=== PATIENT | male | born 1980 | race Caucasian/White ===

== ENCOUNTER 2017-07-07 16:13 | Emergency (ER) | payer BC ==
[~2017-07-07] VITALS: Ht 193 cm; Wt 108.0 kg
[2017-07-07 16:25] VITALS: BP 136/83
[2017-07-07] MEDS ORDERED: TETANUS-DIPTH-ACEL PERTUSSIS 0.5ML SYRG IM ONE (17:00)
== END 2017-07-07 17:31 | disposition home or self-care (01) ==
LOC: ER 16:23
DX: S61.212A Laceration without foreign body of right middle finger without damage to nail, initial encounter (principal); F17.210 Nicotine dependence, cigarettes, uncomplicated; W26.0XXA Contact with knife, initial encounter; Y93.89 Activity, other specified; Y99.8 Other external cause status; Y92.89 Other specified places as the place of occurrence of the external cause; Z23 Encounter for immunization
CPT/HCPCS: 12002; 90471; 90715

== ENCOUNTER 2025-10-25 05:31 | Inpatient (IN) | payer BC ==
[~2025-10-25] VITALS: Ht 193 cm; Wt 118.6 kg
[2025-10-25] VITALS (7 sets, daily range): BP systolic 127–157; BP diastolic 81–99; PULSE 67–115; RESP 11–18; TEMP 98–98.3; O2SAT 94–97
--- NOTE | 2025-10-25 06:40 | ED.PDOC ---
GI ASSESSMENT HPI Comments 45 y.o male with PMHx of HTN, presents to the ED for a chief complaint of RLQ abdominal pain associated with nausea and vomiting that started yesterday afternoon. Patient describes pain as sharp, constant, and has no alleviating factors. He denies any hematemesis, diarrhea, fever, chills, chest pain, or SOB. Chief Complaint: Abdominal Pain Time Seen by MD: 06:32 Reviewed Notes: Nurses Notes, Medications, Allergies Allergies: Coded Allergies: NO KNOWN ALLERGIES (Unverified , 07/07/17) Information Source: Patient Mode of Arrival: Ambulatory Timing: Days Duration: Since onset Vomitus: Firm Stool: Normal Severity: Moderate Recent: None Recent Hx of: None Pain Location: Diffuse Modifying Factors: Nothing Associated sign and symptoms: Nausea, Vomiting, Abdominal Pain Past Medical History PAST MEDICAL HISTORY: Denies Surgical History: Denies all surgeries Family History Family History: Unknown Social History Smoker: Cigarettes Lives In: Home Constitutional: denies: chills, diaphoresis, fatigue, fever, malaise, sweats, weakness, others EENTM: denies: blurred vision, double vision, ear bleeding, ear discharge, ear drainage, ear pain, ear ringing, eye pain, eye redness, hearing loss, mouth pain , mouth swelling, nasal discharge, nose bleeding, nose congestion, nose pain, photophobia, tearing, throat pain, throat swelling, voice changes, others Cardiovascular: denies: chest pain, dizzy spells, diaphoresis, Dyspnea on exertion, edema, irregular heart beat, left arm pain, lightheadedness, palpitations, PND, syncope, others Gastrointestinal: reports: abdominal pain, nausea, vomiting; denies: abdomen distended, blood streaked bowels, constipated, diarrhea, dysphagia, difficulty swallowing, hematemesis, melena, poor appetite, poor fluid intake, rectal bleeding, rectal pain, others Genitourinary: denies: burning, dysuria, flank pain, frequency, hematuria, incontinence, penile discharge, penile sore, pain, testicle pain, testicle swelling, urgency, others Neurological: denies: dizziness, fainting, headache, left sided numbness, left sided weakness, numbness, paresthesia, pre-existing deficit, right sided numbness, right sided weakness, seizure, speech problems, tingling, tremors, weakness, others Musculoskeletal: denies: back pain, gout, joint pain, joint swelling, muscle pain, muscle stiffness, neck pain, others Integumetry: denies: bruises, change in color, change in hair/nails, dryness, laceration, lesions, lumps, rash, wounds, others Allergic/Immunocompromised: denies: Difficulty Healing, Frequent Infections, Hives, Itching, others Hematologic/Lymphatic: denies: anemia, blood clots, easy bleeding, easy bruising, swollen glands, others Endocrine: denies: excessive hunger, excessive sweating, excessive thirst, excessive urination, flushing, intolerance to cold, intolerance to heat, unexplained weight gain, unexplained weight loss, others Psychiatric: denies: anxiety, bipolar disorder, depression, hopeless, panic disorder, schizophrenia, sleepless, suicidal, others All Other Systems: Reviewed and Negative Physical Exam General Appearance: Moderate Distress HEENT: Normal ENT Inspection, Pharynx Normal, TMs Normal Neck: Full Range of Motion, Non-Tender, Normal, Normal Inspection Respiratory: Chest Non-Tender, Lungs Clear, No Accessory Muscle Use, No Respiratory Distress, Normal Breath Sounds Cardiovascular: No Edema, No JVD, No Murmur, No Gallop, Normal Peripheral Pulses, Regular Rate/Rhythm Breast Exam: Deferred Gastrointestinal: Diffuse, Soft Genitalia: Deferred Pelvic: Deferred Rectal: Deferred Extremities: No calf tenderness, Normal capillary refill, Normal inspection, Normal range of motion, Non-tender, No pedal edema Musculoskeletal : Apperance: Normal Neurologic: Alert, repeater chief II-XII nml as Tested, No Motor Deficits, Normal Affect, Normal Mood, No Sensory Deficits Cerebellar Function: Normal Reflexes: Normal Skin: Dry, Normal Color, Warm Peripheral Pulses: 3+ Radial (R), 3+ Radial (L) Lymphatic: No Adenopathy Was a procedure done? Was a procedure done?: No GI differential Dx Differential Diagnosis: Constipation, Diverticular disease, Esophagitis, Gastritis/PUD, Gastroenteritis, Dehydration, Electrolyte Imbalance, Food Poisoning, Viral X-Ray, Labs, Meds, VS Vital Signs Date Time Temp Pulse Resp B/P (MAP) Pulse Ox O2 Delivery O2 Flow Rate FiO2 10/25/25 07:55 97 17 134/85 10/25/25 07:49 98.6 97 17 134/85 (101) 97 98.6 10/25/25 06:57 98.6 100 20 135/101 (112) 98 98.6 10/25/25 05:32 98.5 118 18 125/64 98 98.5 Lab Test 10/25/25 06:48 Range/Units White Blood Count 21.9 H 4.4-10.8 10^3/uL Red Blood Count 5.70 4.5-5.90 10^6/uL Hemoglobin 17.6 H 13.5-17.5 g/dL Hematocrit 51.1 41.0-53.0 % Mean Corpuscular Volume 89.7 80.0-100.0 fL Mean Corpuscular Hemoglobin 30.9 28.0-32.0 pg Mean Corpuscular Hemoglobin Concent 34.4 32.0-36.0 g/dL Red Cell Distribution Width 13.7 11.8-14.3 % Platelet Count 326 140-450 10^3/uL Mean Platelet Volume 8.4 6.9-10.8 fL Neutrophils (%) (Auto) 91.1 H 37.0-80.0 % Lymphocytes (%) (Auto) 4.2 L 10.0-50.0 % Monocytes (%) (Auto) 4.5 0.0-12.0 % Eosinophils (%) (Auto) 0.1 0.0-7.0 % Basophils (%) (Auto) 0.1 0.0-2.0 % Neutrophils # (Auto) 19.9 H 1.6-8.6 10 ^3/uL Lymphocytes # (Auto) 0.9 0.4-5.4 10 ^3/uL Monocytes # (Auto) 1.0 0-1.3 10 ^3/uL Eosinophils # (Auto) 0 0-0.8 10 ^3/uL Basophils # (Auto) 0 0-0.2 10 ^3/uL Nucleated Red Blood Cells 0.0 % Sodium Level 136 136-145 mmol/L Potassium Level 4.5 3.5-5.1 mmol/L Chloride Level 101 98-107 mmol/L Carbon Dioxide Level 25 20-31 mmol/L Anion Gap 10 5-15 Blood Urea Nitrogen 15 9-23 mg/dL Creatinine 1.34 H 0.700-1.30 mg/dL Glomerular Filtration Rate Calc 67 >90 mL/min BUN/Creatinine Ratio 11.2 10.0-20.0 Serum Glucose 103 74-106 mg/dL Calcium Level 9.8 8.7-10.4 mg/dL Current Medications Medications (Trade) Dose Ordered Sig/Aretha Route Start Time Stop Time Status Last Admin Morphine Sulfate 4 mg ONCE ONCE IV 10/25/25 06:45 10/25/25 06:46 DC 10/25/25 07:55 Ondansetron HCl (Zofran) 4 mg ONCE ONCE IV 10/25/25 06:45 10/25/25 06:46 DC 10/25/25 07:55 Sodium Chloride 1,000 ml @ 1,000 mls/hr Q1H ONCE IV 10/25/25 06:45 10/25/25 07:44 DC 10/25/25 07:56 Patient alert. Complaining of abdominal pain. Vitals stable. Answering questions. Abdomen is diffusely tender. Establish intravenous access. Was given fluids. Was given morphine. Was given Zofran. CT scan of the abdomen reviewed does show a appendicitis. Was given Ancef. Was given Flagyl. Surgical consultation. Explained to the patient. Continue monitoring. Time of 1ST Reevaluation: 06:40 Reevaluation 1ST: Unchanged Patient Education/Counseling: Diagnosis, Treatment, Prognosis Family Education/Counseling: No Family Present SEPSIS Sepsis Screen Date sepsis recognized/suspect: Oct 25, 2025 Time Sepsis recognized/suspect: 533 Recent Procedure: No On Antibiotic Therapy: No Respiratory Rate >20: No Heart Rate >90: Yes Temp<36 C (96.8 F) or >38.3 C: No SBP <90 or MAP <65 mmHG: No New Acute Mental Status Change: No Is the patient on CPAP, BIPAP,: No Physician Orders Urinalysis (10/25/25 06:37) Ct Ab Pel Wo Con-No Oral Or Iv (10/25/25 06:37) Vital Signs Date Time Temp Pulse Resp B/P (MAP) Pulse Ox O2 Delivery O2 Flow Rate FiO2 10/25/25 07:55 97 17 134/85 10/25/25 07:49 98.6 97 17 134/85 (101) 97 98.6 10/25/25 06:57 98.6 100 20 135/101 (112) 98 98.6 10/25/25 05:32 98.5 118 18 125/64 98 98.5 Laboratory Tests Test 10/25/25 06:48 White Blood Count 21.9 10^3/uL (4.4-10.8) H Medications Medications Dose Ordered Sig/Aretha Route Start Time Stop Time Status Last Admin Dose Admin Morphine Sulfate 4 mg ONCE ONCE IV 10/25/25 06:45 10/25/25 06:46 DC 10/25/25 07:55 Ondansetron HCl 4 mg ONCE ONCE IV 10/25/25 06:45 10/25/25 06:46 DC 10/25/25 07:55 Sodium Chloride 1,000 ml @ 1,000 mls/hr Q1H ONCE IV 10/25/25 06:45 10/25/25 07:44 DC 10/25/25 07:56 Departure 1 Departure Time of Disposition: 07:10 Impression: Primary Impression: Acute appendicitis Qualified Codes: K35.80 - Unspecified acute appendicitis Disposition: ADMITTED INPATIENT Admit to: Med Surg Condition: Guarded Critical Care Note Critical Care Time?: Yes (90 min-critical care time only) Stability Stability form required: No I personally scribed for AMANDA LAY MD ([email or web address]) on 10/25/25 at 06:40. Electronically submitted by Lisset Villanueva ([facility]). I personally scribed for AMANDA LAY MD ([email or web address]) on 10/25/25 at 06:40. Electronically submitted by Lisset Villanueva ([facility]). I personally scribed for AMANDA LAY MD ([email or web address]) on 10/25/25 at 08:22. Electronically submitted by Lisset Villanueva ([facility]). AMANDA LAY MD Oct 25, 2025 06:40
[2025-10-25 07:29] LABS: Chloride 101 mmol/L (98-107); Hematocrit 51.1 % (41.0-53.0); Hemoglobin 17.6 g/dL (13.5-17.5); Mean Corpuscular Hemoglobin 30.9 pg (28.0-32.0); Mean Corpuscular Volume 89.7 fL (80.0-100.0); Nucleated Red Blood Cells % 0.0 %; Potassium 4.5 mmol/L (3.5-5.1); Sodium 136 mmol/L (136-145)
[2025-10-25 07:30] LABS: Anion Gap 10 (5-15); Calcium 9.8 mg/dL (8.7-10.4); Carbon Dioxide 25 mmol/L (20-31)
[2025-10-25 07:35] LABS: BUN/Creatinine Ratio 11.2 (10.0-20.0); Blood Urea Nitrogen 15 mg/dL (9-23); Glucose 103 mg/dL (74-106)
[2025-10-25] MEDS: ONDANSETRON HCL 4 MG/2 ML VIAL IV ONE (07:55)
[2025-10-25] MEDS: MORPHINE SULFATE 4 MG/ML SYR/VIAL IV ONE (07:55)
[2025-10-25] MEDS: SODIUM CHLORIDE 0.9% 1,000 ML IV ONE ×2 (07:56→09:17)
--- NOTE | 2025-10-25 08:09 | DVH ---
Exam: CT CT AB PEL WO CON-NO ORAL OR IV History: colitis Comparison Study: None. Technique: Multidetector spiral CT of the abdomen and pelvis was performed from lung bases to pubic symphysis. Imaging was performed without intravenous contrast. Coronal and sagittal multiplanar reformats were obtained from the axial data set by the technologist. Radiation Dose : 1. Abdomen/Pelvis: CTDIvol 17.2 mGy, DLP 1018.3 mGy*cm. Findings: Evaluation of vasculature and solid organs is limited due to lack of intravenous contrast use. Lung Bases: Lung bases are clear. Visualized portions of the heart and pericardium are unremarkable. Liver: The liver is normal in size. No focal lesions. Gallbladder and Biliary Tree: The gallbladder is unremarkable. No intrahepatic or extrahepatic biliary ductal dilatation. Spleen: Unremarkable Pancreas: The pancreas is grossly unremarkable. Adrenal Glands: Unremarkable Kidneys: Kidneys are unremarkable without calculi or hydronephrosis. GI tract: The stomach is grossly normal in appearance. No evidence of small bowel wall thickening or abnormal dilatation to suggest bowel obstruction. The colon is unremarkable. The appendix is dilated with periappendiceal fat stranding. The appendix measures up to 1.4 cm. There is a 5 mm appendicolith in the appendix. Peritoneum/mesentery/retroperitoneum. No evidence of free intraperitoneal air. No ascites. No evidence of suspicious lymphadenopathy. Abdominal Wall: Postsurgical changes in the ventral abdominal wall. Vasculature: The visualized abdominal aorta is normal in size and caliber. Evaluation of abdominal and pelvic vessels is limited due to lack of intravenous contrast. Urinary Bladder: Grossly unremarkable for degree of distention. Pelvic Organs: Unremarkable Musculoskeletal: No aggressive focal bony lesions, acute fractures or dislocation. Multilevel lumbar spondylosis. T11, T12 and L1 age-indeterminate compression deformity. IMPRESSION: 1. Acute appendicitis. No perforation or fluid collection. 2. Age-indeterminate T11, T12 and L1 compression deformities. 3. Postsurgical changes in the ventral abdominal wall.
[2025-10-25] MEDS: ceFAZolin 1GM/50ML 50 ML IV ONE (08:30)
[2025-10-25] MEDS ORDERED: ACETAMINOPHEN 325 MG TAB PO PRN (09:00)
[2025-10-25] MEDS ORDERED: ONDANSETRON HCL 4 MG/2 ML VIAL IV PRN ×2 (09:00→16:45)
[2025-10-25] MEDS ORDERED: DOCUSATE SOD 100 MG CAP PO PRN (09:00)
[2025-10-25] MEDS ORDERED: PANT40T PO (09:05)
[2025-10-25] MEDS ORDERED: MET50T PO (09:05)
[2025-10-25] MEDS ORDERED: VALS1TAB58 PO (09:05)
--- NOTE | 2025-10-25 09:18 | DVHHP2 ---
History of Present Illness Reason for Visit: Abdominal Pain History of Present Illness Marcellus Kam is a 45-year-old male with past medical history of GERD and hypertension, who came to the hospital for abdominal pain. Patient states the pain began yesterday about [id number] in his RLQ that he describes as sharp with associated nausea and vomiting. He states he was also having severe acid reflux and he has not been able to eat or drink much the last 24 hours. He tried multiple home remedies, but his pain continued to worsen prompting him to come to the hospital. Cardiovascular: HTN GI: GERD Past Surgical History: Hernia Repair (x 4) Smoke: No ALCOHOL: rare Drugs: None Lives: with Family Domestic Violence: Neg Review of Systems Constitutional: No: Fever, Chills, Sweats, Weakness, Malaise, Other Eyes: No: Pain, Vision change, Conjunctivae inflammation, Eyelid inflammation, Other, Redness ENT: No: Ear pain, Ear discharge, Nose pain, Nose discharge, Nose congestion, Mouth pain, Mouth swelling, Throat pain, Throat swelling, Other Respiratory: No: Cough, Dry, Shortness of breath, SOB with excertion, Wheezing, Hemoptysis, Pleuritic Pain, Sputum, Wheezing, Other Cardiovascular: No: Chest Pain, Palpitations, Orthopnea, Paroxysmal Noc. Dyspnea, Edema, Lt Headedness, Other Gastrointestinal: Nausea, Vomiting, Abdominal Pain (RLQ tenderness that radiates down his groin); No: Diarrhea, Constipation, Melena, Hematochezia, Other Genitourinary: No Dysuria, No Frequency, No Incontinence, No Hematuria, No Retention, No Other Musculoskeletal: No: other, neck pain, shoulder pain, arm pain, back pain, hand pain, leg pain, foot pain Skin: No: Rash, Lesions, Jaundice, Bruising, Other Neurological: No: Weakness, Numbness, Incoordination, Change in speech, Confusion, Seizures, Other Allergies: Coded Allergies: NO KNOWN ALLERGIES (Unverified , 07/07/17) Exam Vital Signs Vital Signs Date Time Temp Pulse Resp B/P (MAP) Pulse Ox O2 Delivery O2 Flow Rate FiO2 10/25/25 07:55 97 17 134/85 10/25/25 07:49 98.6 97 98.6 General Appearance: Alert, Oriented X3, Cooperative, moderate distress HEENT: Atraumatic, PERRLA, Other (Mucous membr dry) Respiratory: Clear to auscultation Cardiovascular: Regular rate, Normal S1, Normal S2, No murmurs Abdominal: Normal bowel sounds, Other (RLQ tenderness) Extremities: No clubbing, No cyanosis, No edema, Normal pulses Skin: No rashes, No breakdown, No significant lesion Neuro: Normal gait, Normal speech, Strength at 5/5 X4 ext, Normal tone Psych/Mental Status: Mental status NL, Mood NL Labs/Xrays Labs Test 10/25/25 06:48 Range/Units White Blood Count 21.9 H 4.4-10.8 10^3/uL Red Blood Count 5.70 4.5-5.90 10^6/uL Hemoglobin 17.6 H 13.5-17.5 g/dL Hematocrit 51.1 41.0-53.0 % Mean Corpuscular Volume 89.7 80.0-100.0 fL Mean Corpuscular Hemoglobin 30.9 28.0-32.0 pg Mean Corpuscular Hemoglobin Concent 34.4 32.0-36.0 g/dL Red Cell Distribution Width 13.7 11.8-14.3 % Platelet Count 326 140-450 10^3/uL Mean Platelet Volume 8.4 6.9-10.8 fL Neutrophils (%) (Auto) 91.1 H 37.0-80.0 % Lymphocytes (%) (Auto) 4.2 L 10.0-50.0 % Monocytes (%) (Auto) 4.5 0.0-12.0 % Eosinophils (%) (Auto) 0.1 0.0-7.0 % Basophils (%) (Auto) 0.1 0.0-2.0 % Neutrophils # (Auto) 19.9 H 1.6-8.6 10 ^3/uL Lymphocytes # (Auto) 0.9 0.4-5.4 10 ^3/uL Monocytes # (Auto) 1.0 0-1.3 10 ^3/uL Eosinophils # (Auto) 0 0-0.8 10 ^3/uL Basophils # (Auto) 0 0-0.2 10 ^3/uL Nucleated Red Blood Cells 0.0 % Sodium Level 136 136-145 mmol/L Potassium Level 4.5 3.5-5.1 mmol/L Chloride Level 101 98-107 mmol/L Carbon Dioxide Level 25 20-31 mmol/L Anion Gap 10 5-15 Blood Urea Nitrogen 15 9-23 mg/dL Creatinine 1.34 H 0.700-1.30 mg/dL Glomerular Filtration Rate Calc 67 >90 mL/min BUN/Creatinine Ratio 11.2 10.0-20.0 Serum Glucose 103 74-106 mg/dL Calcium Level 9.8 8.7-10.4 mg/dL Exam: CT CT AB PEL WO CON-NO ORAL OR IV Findings: Evaluation of vasculature and solid organs is limited due to lack of intravenous contrast use. Lung Bases: Lung bases are clear. Visualized portions of the heart and pericardium are unremarkable. Liver: The liver is normal in size. No focal lesions. Gallbladder and Biliary Tree: The gallbladder is unremarkable. No intrahepatic or extrahepatic biliary ductal dilatation. Spleen: Unremarkable Pancreas: The pancreas is grossly unremarkable. Adrenal Glands: Unremarkable Kidneys: Kidneys are unremarkable without calculi or hydronephrosis. GI tract: The stomach is grossly normal in appearance. No evidence of small bowel wall thickening or abnormal dilatation to suggest bowel obstruction. The colon is unremarkable. The appendix is dilated with periappendiceal fat stranding. The appendix measures up to 1.4 cm. There is a 5 mm appendicolith in the appendix. Peritoneum/mesentery/retroperitoneum. No evidence of free intraperitoneal air. No ascites. No evidence of suspicious lymphadenopathy. Abdominal Wall: Postsurgical changes in the ventral abdominal wall. Vasculature: The visualized abdominal aorta is normal in size and caliber. Evaluation of abdominal and pelvic vessels is limited due to lack of intravenous contrast. Urinary Bladder: Grossly unremarkable for degree of distention. Pelvic Organs: Unremarkable Musculoskeletal: No aggressive focal bony lesions, acute fractures or dislocation. Multilevel lumbar spondylosis. T11, T12 and L1 age-indeterminate compression deformity. IMPRESSION: 1. Acute appendicitis. No perforation or fluid collection. 2. Age-indeterminate T11, T12 and L1 compression deformities. 3. Postsurgical changes in the ventral abdominal wall. SEPSIS Sepsis Screen Date sepsis recognized/suspect: Oct 25, 2025 Time Sepsis recognized/suspect: 0534 Recent Procedure: No On Antibiotic Therapy: No Respiratory Rate >20: No Heart Rate >90: Yes Temp<36 C (96.8 F) or >38.3 C: No SBP <90 or MAP <65 mmHG: No New Acute Mental Status Change: No Is the patient on CPAP, BIPAP,: No Physician Orders Urinalysis (10/25/25 06:37) Ct Ab Pel Wo Con-No Oral Or Iv (10/25/25 06:37) Cefazolin 1gm/50ml (Ancef) (10/25/25 08:30) Metronidazole 500mg/100ml (Flagyl 500mg/ (10/25/25 08:30) * Surgical Consult (10/25/25 ) Admit (10/25/25 08:53) Code Status (10/25/25 08:53) Hydrocodone-Acet 5/325mg Tab ([place] 5/32 (10/25/25 09:00) Ondansetron Hcl (Zofran) (10/25/25 09:00) Docusate Sodium Capsule (Colace Capsule) (10/25/25 09:00) Complete Blood Count (10/26/25 04:00) Comprehensive Metabolic Panel (10/26/25 04:00) Npo (Nothing By Mouth) Diet (10/25/25 Breakfast) Condition: Serious (10/25/25 08:53) Acetaminophen Tablet (Tylenol Tablet) (10/25/25 09:00) Morphine Sulfate Injection (10/25/25 09:00) Pantoprazole (Protonix) (10/25/25 10:00) Vital Signs Date Time Temp Pulse Resp B/P (MAP) Pulse Ox O2 Delivery O2 Flow Rate FiO2 10/25/25 07:55 97 17 134/85 10/25/25 07:49 98.6 97 17 134/85 (101) 97 98.6 10/25/25 06:57 98.6 100 20 135/101 (112) 98 98.6 10/25/25 05:32 98.5 118 18 125/64 98 98.5 Laboratory Tests Test 10/25/25 06:48 White Blood Count 21.9 10^3/uL (4.4-10.8) H Medications Medications Dose Ordered Sig/Aretha Route Start Time Stop Time Status Last Admin Dose Admin Morphine Sulfate 4 mg ONCE ONCE IV 10/25/25 06:45 10/25/25 06:46 DC 10/25/25 07:55 4 MG Ondansetron HCl 4 mg ONCE ONCE IV 10/25/25 06:45 10/25/25 06:46 DC 10/25/25 07:55 4 MG Sodium Chloride 1,000 ml @ 1,000 mls/hr Q1H ONCE IV 10/25/25 06:45 10/25/25 07:44 DC 10/25/25 07:56 1,000 MLS/HR Assessment/Plan Assessment/Plan Assessment: Acute appendicitis, Leukocytosis, Intractable abdominal pain, Hypertension, Plan: Admit to Med-Surg, Surgical consult, NPO, IV hydration, IV antibiotics, Pain management, Portable chest X-ray, PT/PTT, Home medications reconciled, Plan discussed with: Patient My Orders Orders - VALDEZ HARLEY Procedure Category Date Status Time Admit ADMIT 10/25/25 Transmitted 08:53 Code Status CODE 10/25/25 Transmitted 08:53 Hydrocodone-Acet PHA 10/25/25 Transmitted 5/325mg Tab ([place] 09:00 Ondansetron Hcl PHA 10/25/25 Transmitted (Zofran) 09:00 Docusate Sodium PHA 10/25/25 Transmitted Capsule (Colace 09:00 Complete Blood Count LAB 10/26/25 Verified 04:00 Comprehensive LAB 10/26/25 Verified Metabolic Panel 04:00 Npo (Nothing By DIET 10/25/25 Transmitted Mouth) Diet Breakfast Condition: Serious JOSE 10/25/25 Transmitted 08:53 Acetaminophen Tablet PHA 10/25/25 Transmitted (Tylenol Tablet) 09:00 Morphine Sulfate PHA 10/25/25 Transmitted Injection 09:00 Pantoprazole PHA 10/25/25 Transmitted (Protonix) 10:00 Date of Service: Oct 25, 2025 Billing Provider: VALDEZ HARLEY Common Visit Codes: [id number] INP/OBS CARE (MOD) VALDEZ HARLEY Oct 25, 2025 09:17
[2025-10-25 09:29] LABS: INR 1.08 (0.9-1.15); Partial Thromboplastin Time 25.9 SEC (24.5-34.5); Prothrombin Time 11.4 sec (9.3-11.8)
[2025-10-25] MEDS: SODIUM CHLORIDE 0.9% 1,000 ML IV SCH (09:36)
--- NOTE | 2025-10-25 09:51 | DVH ---
CHEST RADIOGRAPH Indication: Pre-Op Technique: Single frontal view of the chest was obtained Comparison: None FINDINGS: Lines and Tubes: None Lungs: No focal consolidation. Pleura: No effusion. No pneumothorax. Cardiomediastinal contours: Unremarkable Bones: No acute osseous abnormality. IMPRESSION: 1. No acute cardiopulmonary disease.
[2025-10-25] MEDS ORDERED: METOPROLOL TARTRATE 50 MG TAB PO SCH (10:00)
--- NOTE | 2025-10-25 10:25 | DVHINCON2 ---
Date of service: Oct 25, 2025 History of Present Illness 45-year-old male with hypertension complaining of one day history of right lower quadrant abdominal pain associated with low-grade fever, nausea and vomiting. Past Medical History Hypertension and asthma Past Surgical History Umbilical hernia repair with mesh. Two right inguinal hernia repairs with mesh. Left inguinal hernia repair with mesh Family History Noncontributory Social History Denies alcohol, tobacco, IV drug use Allergies: Coded Allergies: NO KNOWN ALLERGIES (Unverified , 07/07/17) Home Meds Reported Medications Pantoprazole Sodium Sesquihydr (Pantoprazole Sodium) 40 Mg Tab, 1 TAB PO DAILY 10/25/25 Valsartan (Valsartan) 160 Mg Tab, 1 TAB PO DAILY 10/25/25 Metoprolol Tartrate (LOPRESSOR TABLET) 50 Mg Tb, 1 TAB PO DAILY 10/25/25 Current Medications Current Medications Medications (Trade) Dose Ordered Sig/Aretha Route PRN Reason Start Time Stop Time Status Last Admin Acetaminophen/ Hydrocodone Bitart ([place] 5/325MG Tab) 1 tab Q4HP PRN PO MODERATE PAIN (4-6 PAIN SCALE) 10/25/25 09:00 Ondansetron HCl (Zofran) 4 mg Q4HP PRN IV NAUSEA / VOMITING 10/25/25 09:00 Docusate Sodium (Colace Capsule) 100 mg BIDPRN PRN PO FOR CONSTIPATION 10/25/25 09:00 Acetaminophen (Tylenol Tablet) 650 mg Q6HP PRN PO PAIN SCALE 1-3 OR TEMP>100.4 10/25/25 09:00 Morphine Sulfate 2 mg Q4HPRN PRN IV SEVERE PAIN (7-10 PAIN SCALE) 10/25/25 09:00 Pantoprazole Sodium (Protonix) 40 mg DAILY IV 10/25/25 10:00 Metoprolol Tartrate (Lopressor Tablet) 50 mg DAILY PO 10/25/25 10:00 Hold Valsartan (Diovan) 160 mg DAILY PO 10/25/25 10:00 Cefazolin Sodium 50 ml @ 100 mls/hr Q8HR IV 10/25/25 14:00 10/25/25 10:13 DC Sodium Chloride 1,000 ml @ 100 mls/hr Q10H IV 10/25/25 09:30 10/25/25 09:36 Vital Signs Vital Signs Date Time Temp Pulse Resp B/P (MAP) Pulse Ox O2 Delivery O2 Flow Rate FiO2 10/25/25 09:48 94 14 131/93 (106) 97 10/25/25 09:06 Room Air* 0 21 10/25/25 07:49 98.6 98.6 Physical Exam GEN: Age-appropriate male in no acute distress. Alert. HEENT: Normocephalic atraumatic. Moist mucous membranes. Anicteric sclerae. CV: RRR Respiratory: CTAB ABD: Localized right lower quadrant tenderness to palpation with localized guarding. CT of the abdomen and pelvis: 1.4 cm appendix with periappendiceal fat stranding with a 5 mm appendicolith consistent with acute appendicitis. Labs/Diagnostic Data Labs Test 10/25/25 06:48 Range/Units White Blood Count 21.9 H 4.4-10.8 10^3/uL Red Blood Count 5.70 4.5-5.90 10^6/uL Hemoglobin 17.6 H 13.5-17.5 g/dL Hematocrit 51.1 41.0-53.0 % Mean Corpuscular Volume 89.7 80.0-100.0 fL Mean Corpuscular Hemoglobin 30.9 28.0-32.0 pg Mean Corpuscular Hemoglobin Concent 34.4 32.0-36.0 g/dL Red Cell Distribution Width 13.7 11.8-14.3 % Platelet Count 326 140-450 10^3/uL Mean Platelet Volume 8.4 6.9-10.8 fL Neutrophils (%) (Auto) 91.1 H 37.0-80.0 % Lymphocytes (%) (Auto) 4.2 L 10.0-50.0 % Monocytes (%) (Auto) 4.5 0.0-12.0 % Eosinophils (%) (Auto) 0.1 0.0-7.0 % Basophils (%) (Auto) 0.1 0.0-2.0 % Neutrophils # (Auto) 19.9 H 1.6-8.6 10 ^3/uL Lymphocytes # (Auto) 0.9 0.4-5.4 10 ^3/uL Monocytes # (Auto) 1.0 0-1.3 10 ^3/uL Eosinophils # (Auto) 0 0-0.8 10 ^3/uL Basophils # (Auto) 0 0-0.2 10 ^3/uL Nucleated Red Blood Cells 0.0 % Prothrombin Time 11.4 9.3-11.8 sec Prothrombin Time INR 1.08 0.9-1.15 Activated Partial Thromboplast Time 25.9 24.5-34.5 SEC Sodium Level 136 136-145 mmol/L Potassium Level 4.5 3.5-5.1 mmol/L Chloride Level 101 98-107 mmol/L Carbon Dioxide Level 25 20-31 mmol/L Anion Gap 10 5-15 Blood Urea Nitrogen 15 9-23 mg/dL Creatinine 1.34 H 0.700-1.30 mg/dL Glomerular Filtration Rate Calc 67 >90 mL/min BUN/Creatinine Ratio 11.2 10.0-20.0 Serum Glucose 103 74-106 mg/dL Calcium Level 9.8 8.7-10.4 mg/dL Assessment 1. Acute appendicitis Plan/Recommendation 1. Laparoscopic appendectomy possible open surgery Informed consent: The surgery and its risks including but not limited to infection, bleeding requiring possible blood transfusion with the risk of hepatitis or HIV infection, possible open surgery, possible perioperative [place] or stroke, possibility that the abdominal pain is caused by different intra- abdominal pathology other than acute appendicitis in which case we will proceed with the appendectomy if it is safe to do so and then treat the problem according to intraoperative findings were explained to the patient. All questions were answered to his satisfaction. He expressed verbal understanding and wished to proceed with the surgery. Plan discussed with: Patient SHAWNEE ROPER MD Oct 25, 2025 10:25
[2025-10-25] MEDS ORDERED: MORPHINE SULFATE 4 MG/ML SYR/VIAL IV ONE (10:30)
[2025-10-25] MEDS: VALSARTAN 80 MG TAB PO SCH (10:36)
[2025-10-25] MEDS: PANTOPRAZOLE 40 MG/10 ML VIAL INJ IV SCH (10:36)
[2025-10-25] MEDS: PIPERACILLIN-TAZOB 3.375GM 100 ML IV ONE (10:39)
[2025-10-25] MEDS: MORPHINE SULFATE INJ 2 MG/ml SYRG IV PRN (10:46)
[2025-10-25] MEDS ORDERED: VALS40TA2 PO (11:05)
[2025-10-25] MEDS ORDERED: OMEP20TA PO (11:05)
[2025-10-25] MEDS ORDERED: METO-6 PO (11:05)
[2025-10-25] MEDS ORDERED: ALBU2TAB11 PO (11:05)
[2025-10-25] MEDS ORDERED: ceFAZolin 1GM/50ML 50 ML IV SCH (14:00)
[2025-10-25] MEDS ORDERED: fentaNYL CITRATE 100 MCG/2 ML VL ONE (14:34)
[2025-10-25] MEDS ORDERED: PROPOFOL 10 MG/ML 20 ML IV ONE (14:34)
[2025-10-25] MEDS: SUCCINYLCHOLINE CHLORIDE 20 MG/ML 10ML VIAL IV ONE (15:01)
[2025-10-25] MEDS ORDERED: MEPERIDINE HCL (25 MG/ML) 1ML VIAL ONE (15:16)
[2025-10-25] MEDS ORDERED: ROCURONIUM 10MG/ML 10ML VIAL IV ONE (15:26)
[2025-10-25] MEDS ORDERED: fentaNYL CITRATE 5 ML ONE (15:27)
[2025-10-25] MEDS ORDERED: SUGAMMADEX 200mg/2ml Vial (100MG/ML) IV ONE ×2 (15:55→16:13)
[2025-10-25] MEDS: LIDOCAINE W/ EPINEPHRINE 1% 20ML VIAL ONE (15:58)
--- NOTE | 2025-10-25 16:16 | DVHOP2 ---
Operative Report - 2 Report Details Date: 10/25/25 Preop Diagnosis: 1. Acute appendicitis Postop Diagnosis: 1. Perforated appendicitis Surgeon: Shawnee Negro MD Piping Manager: None Anesthesiologist: Dr. Sharma Anesthesia: Local Drains: 15 [place] William drain in the pelvis Consent: The surgery and its risks including but not limited to infection, bleeding requiring possible blood transfusion with the risk of hepatitis or HIV infection, possible perioperative MD or stroke were explained to the patient. All questions were answered to his satisfaction. He expressed verbal understanding and wished to proceed with the surgery. Complications: None Estimated Blood Loss: 20 mL Fluids: 1500 mL Name of Procedure Performed Laparoscopic appendectomy Procedure Details Procedure Details: After induction of general anesthesia, a Bello catheter was placed by the OR nursing staff. Patient's abdomen was then prepped and draped in standard surgical fashion. A supraumbilical incision was made away from the previous incisional scar. Incision extended through the soft tissue down to the fascia which was opened in midline sharply. Peritoneum was then bluntly divided gaining access to the intra-abdominal cavity. Interrupted 0 Vicryl sutures were placed through the fascial incision and using an open technique, Allison trocar was introduced and secured using the Vicryl sutures. Abdomen was insufflated to 15 mmHg and camera was inserted. Examination of the intra-abdominal cavity revealed diffuse inflammatory changes with fibrinous exudates covering the bowel and purulent fluid in the pelvis and along the right gutter up to the hepatic flexure consistent with perforated appendicitis. The purulent fluid was aspirated away as much as possible. Gentle dissection was performed to identify the cecum which appeared inflamed. The inflamed appendix was identified. The mesoappendix was then stapled and divided using an endovascular stapler up to the base of the appendix. The base of the appendix was then stapled and divided using a regular endo stapler. The appendix was then removed from the abdominal cavity using an endo pouch bag and sent off the surgical field. Abdomen was then re-insufflated. The staple line appeared intact without bleeding or leaks. The right upper quadrant and pelvic areas were well irrigated until fluid appea red more clear. Fifteen [place] William drain was placed into the pelvis and brought out through the suprapubic trocar site and secured to the skin using 3-0 nylon sutures. Rest of the trocar was then removed under direct visualization as the abdomen was deflated. Additional interrupted 0 Vicryl sutures were placed through the supraumbilical fascial incision and the sutures were tied down closing off the supraumbilical fascia. Surgical sites were irrigated injected with 20 mL of 0.25% Marcaine with epinephrine. Skin incisions were closed using maci. Surgical sites were cleaned and dried and dressings were applied. Sponge, needle, instrument count at the end of the case were reported to be correct by the nursing staff. The patient tolerated procedure well. At the time of dictation, he is being awakened from general anesthesia. Specimen: Appendix Condition Guarded Disposition Still a Patient SHAWNEE NEGRO MD Oct 25, 2025 16:16
[2025-10-25] MEDS ORDERED: ACETAMINOPHEN IV 1000 MG/100ML (10MG/ML) IV PRN (16:45)
[2025-10-25] MEDS ORDERED: MEPERIDINE HCL (25 MG/ML) 1ML VIAL IV PRN (16:45)
[2025-10-25] MEDS ORDERED: HYDROmorphone HCL 2 MG/ML VL/or syr IV PRN (16:45)
[2025-10-25] MEDS ORDERED: METOCLOPRAMIDE HCL 5MG/ml INJ 2ml VIAL IV PRN (16:45)
[2025-10-25] MEDS: PIPERACILLIN-TAZOB 3.375GM 100 ML IV SCH (18:00)
[2025-10-25 20:50] LABS: Urine Protein, UAD Negative (Negative)
[2025-10-26] VITALS (8 sets, daily range): BP systolic 106–149; BP diastolic 67–89; PULSE 90–120; RESP 17–19; TEMP 96.7–99.8; O2SAT 94–98
[2025-10-26 06:27] LABS: Hematocrit 42.7 % (41.0-53.0); Hemoglobin 14.9 g/dL (13.5-17.5); Mean Corpuscular Hemoglobin 31.2 pg (28.0-32.0); Mean Corpuscular Volume 89.5 fL (80.0-100.0); Nucleated Red Blood Cells % 0.0 %
[2025-10-26 06:38] LABS: Alanine Aminotransferase 23 U/L (7-40); Albumin 3.7 g/dL (3.2-4.8); Anion Gap 8 (5-15); BUN/Creatinine Ratio 13.6 (10.0-20.0); Blood Urea Nitrogen 14 mg/dL (9-23); Carbon Dioxide 24 mmol/L (20-31); Chloride 105 mmol/L (98-107); Potassium 4.3 mmol/L (3.5-5.1); Sodium 137 mmol/L (136-145); Total Protein 6.1 g/dL (5.7-8.2)
[2025-10-26 06:44] LABS: Alkaline Phosphatase 43 U/L (46-116); Bilirubin, Total 1.3 mg/dL (0.2-1.0); Calcium 8.6 mg/dL (8.7-10.4); Glucose 111 mg/dL (74-106)
--- NOTE | 2025-10-26 10:31 | DVHPN2 ---
Progress Note - Dictate Date Seen: Oct 26, 2025 Medical Necessity Reason Pt with a Central, PICC or Fol: No Subjective E: no major events o/n. feels much better. vital signs Vital Sign Date Time Temp Pulse Resp B/P (MAP) Pulse Ox O2 Delivery O2 Flow Rate FiO2 10/26/25 09:09 97.7 93 17 119/79 (92) 97 97.7 10/25/25 20:00 Room Air* 0 21 Total Intake and Output 10/25/25 10/25/25 10/26/25 15:00 23:00 07:00 Intake Total 100 ml 400 ml Output Total 100 ml 1100 ml Balance 0 ml -700 ml medications Current Medications Medications Dose Ordered Sig/Aretha Route Start Time Stop Time Status Last Admin Dose Admin Acetaminophen/ Hydrocodone Bitart 1 tab Q4HP PRN PO 10/25/25 09:00 Ondansetron HCl 4 mg Q4HP PRN IV 10/25/25 09:00 Docusate Sodium 100 mg BIDPRN PRN PO 10/25/25 09:00 Acetaminophen 650 mg Q6HP PRN PO 10/25/25 09:00 Morphine Sulfate 2 mg Q4HPRN PRN IV 10/25/25 09:00 10/26/25 08:47 2 MG Pantoprazole Sodium 40 mg DAILY IV 10/25/25 10:00 10/26/25 08:40 40 MG Metoprolol Tartrate 50 mg DAILY PO 10/25/25 10:00 Hold Valsartan 160 mg DAILY PO 10/25/25 10:00 10/26/25 08:48 160 MG Sodium Chloride 1,000 ml @ 100 mls/hr Q10H IV 10/25/25 09:30 10/25/25 10:44 100 MLS/HR Piperacillin Sod/ Tazobactam Sod 100 ml @ 25 mls/hr Q8H IV 10/25/25 18:00 10/26/25 08:49 25 MLS/HR objective GEN: NAD ABD: surgical dressings clean and dry. drain 75 mL slt turbid drainage laboratory and microbiology Laboratory Tests 10/26/25 05:45 Test 10/26/25 05:45 Range/Units Serum Glucose 111 H 74-106 mg/dL Assessment/Plan A: 1. s/p lap appendectomy for perforated appendicitis POD #1 P: 1. cont NPO. 2. ambulate 3. clear liquid diet tomorrow. Plan discussed with: Patient SHAWNEE ROPER MD Oct 26, 2025 10:31
--- NOTE | 2025-10-26 14:44 | DVHPN2 ---
Subjective Patient is complaining of minimal abdominal pain denies any nausea and vomiting currently NPO. Changes from previous H/P or p: No Changes Eyes: No Pain, No Vision change, No Conjunctivae inflammation, No Eyelid inflammation, No Other, No Redness ENT: No Ear pain, No Ear discharge, No Nose pain, No Nose discharge, No Nose congestion, No Mouth pain, No Mouth swelling, No Throat pain, No Throat swelling, No Other Cardiovascular: No Chest Pain, No Palpitations, No Orthopnea, No Paroxysmal Noc. Dyspnea, No Edema, No Lt Headedness, No Other Respiratory: No Cough, No Dry, No Shortness of breath, No SOB with excertion, No Wheezing, No Hemoptysis, No Pleuritic Pain, No Sputum, No Other Gastrointestinal: Nausea, Vomiting, Abdominal Pain (RLQ tenderness that radiates down his groin); No Diarrhea, No Constipation, No Melena, No Hematochezia, No Other Genitourinary: No Dysuria, No Frequency, No Incontinence, No Hematuria, No Retention, No Other Musculoskeletal: No other, No neck pain, No shoulder pain, No arm pain, No back pain, No hand pain, No leg pain, No foot pain Skin: No Rash, No Lesions, No Jaundice, No Bruising, No Other Objective Vitals Vital Signs Date Time Temp Pulse Resp B/P (MAP) Pulse Ox O2 Delivery O2 Flow Rate FiO2 10/26/25 13:31 98 17 121/77 10/26/25 13:00 99.8 94 99.8 10/26/25 08:00 Room Air* 0 21 Intake/Output Intake and Output 10/26/25 07:00 Intake Total 500 ml Output Total 1200 ml Balance -700 ml Intake Oral 300 ml IV Total 200 ml Output Urine Total 1100 ml Drainage Total 100 ml Exam HEENT pupils are reactive Neck is supple CV is S1-S2 regular rate and rhythm Diminished breath sounds bases GI positive bowel sound, positive MACIE drain. 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 Medications Current Medications Medications Dose Ordered Sig/Aretha Route Start Time Stop Time Status Last Admin Dose Admin Acetaminophen/ Hydrocodone Bitart 1 tab Q4HP PRN PO 10/25/25 09:00 Ondansetron HCl 4 mg Q4HP PRN IV 10/25/25 09:00 Docusate Sodium 100 mg BIDPRN PRN PO 10/25/25 09:00 Acetaminophen 650 mg Q6HP PRN PO 10/25/25 09:00 Morphine Sulfate 2 mg Q4HPRN PRN IV 10/25/25 09:00 10/26/25 13:31 2 MG Pantoprazole Sodium 40 mg DAILY IV 10/25/25 10:00 10/26/25 08:40 40 MG Metoprolol Tartrate 50 mg DAILY PO 10/25/25 10:00 Hold Valsartan 160 mg DAILY PO 10/25/25 10:00 10/26/25 08:48 160 MG Sodium Chloride 1,000 ml @ 100 mls/hr Q10H IV 10/25/25 09:30 10/25/25 10:44 100 MLS/HR Piperacillin Sod/ Tazobactam Sod 100 ml @ 25 mls/hr Q8H IV 10/25/25 18:00 10/26/25 08:49 25 MLS/HR Laboratory Results Laboratory Tests 10/26/25 05:45 Chemistry Test 10/26/25 05:45 Albumin 3.7 g/dL (3.2-4.8) Calcium Level 8.6 mg/dL (8.7-10.4) L Total Protein 6.1 g/dL (5.7-8.2) LFT Test 10/26/25 05:45 Alanine Aminotransferase (ALT) 23 U/L (7-40) Alkaline Phosphatase 43 U/L (46-116) L Aspartate Amino Transferase (AST) 15 U/L (13-40) Total Bilirubin 1.3 mg/dL (0.2-1.0) H Urinalysis Test 10/25/25 20:30 Urine Color Colorless (Yellow) Urine Clarity Clear (Clear) Urine pH 6.0 (5.0-9.0) Urine Specific [place] 1.006 (1.001-1.035) Urine Protein Negative (Negative) Urine Ketones Negative (Negative) Urine Blood Trace /uL (Negative) H Urine Nitrite Negative (Negative) Urine Bilirubin Negative (Negative) Urine Urobilinogen Normal mg/dL (Negative) Urine Leukocyte Esterase Negative /uL (Negative) Urine RBC 1 /hpf (0 - 3) Urine Microscopic WBC 6 /HPF (0-3) H Urine Squamous Epithelial Cells Few /hpf (<5) Urine Bacteria Few /hpf (None Seen) H Urine Glucose Normal mg/dL (Normal) Assessment/Plan Assessment/Plan 45-year-old male with a known history of hypertension, GERD, presented to the hospital with the abdominal pain found to have 1. Acute appendicitis status post laparoscopic appendectomy, positive MACIE drain 2. Leukocytosis likely reactive 3. GERD 4. Hypertension 5. Age Indeterminate T11, T12 and L1 compression deformities -continue NPO, IV fluids, pain meds as needed, empirical IV antibiotics, follow up General surgery recommendations. Plan discussed with: Patient Problem List: (1) Acute abdominal pain (2) Acute appendicitis Date of Service: Oct 26, 2025 Billing Provider: TONI ROWLAND MD Common Visit Codes: [id number] INP/OBS CARE(HIGH) TONI ROWLAND MD Oct 26, 2025 14:44
[2025-10-27] VITALS (8 sets, daily range): BP systolic 119–135; BP diastolic 76–92; PULSE 98–112; RESP 17–20; TEMP 97.7–99.4; O2SAT 66–96
[2025-10-27] MEDS: HYDROcodone-ACET 5/325MG TAB PO PRN (00:20)
[2025-10-27 05:59] LABS: Hematocrit 46.5 % (41.0-53.0); Hemoglobin 15.7 g/dL (13.5-17.5); Mean Corpuscular Hemoglobin 31.1 pg (28.0-32.0); Mean Corpuscular Volume 92.2 fL (80.0-100.0); Nucleated Red Blood Cells % 0.0 %
[2025-10-27 06:35] LABS: Anion Gap 8 (5-15); Carbon Dioxide 27 mmol/L (20-31); Chloride 101 mmol/L (98-107); Potassium 4.5 mmol/L (3.5-5.1); Sodium 136 mmol/L (136-145)
[2025-10-27 06:41] LABS: BUN/Creatinine Ratio 9.4 (10.0-20.0); Blood Urea Nitrogen 11 mg/dL (9-23); Calcium 8.7 mg/dL (8.7-10.4); Glucose 91 mg/dL (74-106)
[2025-10-27] MEDS: SODIUM CHLORIDE 0.9% 1,000 ML IV SCH (15:15)
--- NOTE | 2025-10-27 15:15 | DVHPN2 ---
Progress Note - Dictate Date Seen: Oct 27, 2025 Medical Necessity Reason Pt with a Central, PICC or Fol: No Subjective E: no major events o/n. feels much better. vital signs Vital Sign Date Time Temp Pulse Resp B/P (MAP) Pulse Ox O2 Delivery O2 Flow Rate FiO2 10/27/25 12:29 99.4 103 18 119/76 (90) 94 99.4 10/27/25 08:00 Room Air* 0 21 Total Intake and Output 10/26/25 10/26/25 10/27/25 15:00 23:00 07:00 Intake Total 0 ml 0 ml Output Total 1200 ml 400 ml Balance -1200 ml -400 ml medications Current Medications Medications Dose Ordered Sig/Aretha Route Start Time Stop Time Status Last Admin Dose Admin Acetaminophen/ Hydrocodone Bitart 1 tab Q4HP PRN PO 10/25/25 09:00 10/27/25 14:25 1 TAB Ondansetron HCl 4 mg Q4HP PRN IV 10/25/25 09:00 Docusate Sodium 100 mg BIDPRN PRN PO 10/25/25 09:00 Acetaminophen 650 mg Q6HP PRN PO 10/25/25 09:00 Morphine Sulfate 2 mg Q4HPRN PRN IV 10/25/25 09:00 10/27/25 03:09 2 MG Pantoprazole Sodium 40 mg DAILY IV 10/25/25 10:00 10/27/25 09:47 40 MG Metoprolol Tartrate 50 mg DAILY PO 10/25/25 10:00 Hold Valsartan 160 mg DAILY PO 10/25/25 10:00 10/27/25 09:47 160 MG Sodium Chloride 1,000 ml @ 100 mls/hr Q10H IV 10/25/25 09:30 10/27/25 09:48 100 MLS/HR Piperacillin Sod/ Tazobactam Sod 100 ml @ 25 mls/hr Q8H IV 10/25/25 18:00 10/27/25 09:48 25 MLS/HR Melatonin 10 mg HS PO 10/27/25 22:00 objective GEN: NAD ABD: surgical dressings clean and dry. drain 40 mL serosang drainage laboratory and microbiology Laboratory Tests 10/27/25 05:36 Test 10/27/25 05:36 Range/Units Serum Glucose 91 74-106 mg/dL Assessment/Plan A: 1. s/p lap appendectomy for perforated appendicitis POD #2 P: 1. full liquid diet. 2. prob dc home tomorrow. Plan discussed with: Patient SHAWNEE ROPER MD Oct 27, 2025 15:15
--- NOTE | 2025-10-27 15:43 | DVHPN2 ---
Subjective Patient is complaining of minimal abdominal pain denies any nausea and vomiting currently NPO. We will ask surgery if we can start liquid diet for now. Changes from previous H/P or p: No Changes Eyes: No Pain, No Vision change, No Conjunctivae inflammation, No Eyelid inflammation, No Other, No Redness ENT: No Ear pain, No Ear discharge, No Nose pain, No Nose discharge, No Nose congestion, No Mouth pain, No Mouth swelling, No Throat pain, No Throat swelling, No Other Cardiovascular: No Chest Pain, No Palpitations, No Orthopnea, No Paroxysmal Noc. Dyspnea, No Edema, No Lt Headedness, No Other Respiratory: No Cough, No Dry, No Shortness of breath, No SOB with excertion, No Wheezing, No Hemoptysis, No Pleuritic Pain, No Sputum, No Other Gastrointestinal: Nausea, Vomiting, Abdominal Pain (RLQ tenderness that radiates down his groin); No Diarrhea, No Constipation, No Melena, No Hematochezia, No Other Genitourinary: No Dysuria, No Frequency, No Incontinence, No Hematuria, No Retention, No Other Musculoskeletal: No other, No neck pain, No shoulder pain, No arm pain, No back pain, No hand pain, No leg pain, No foot pain Skin: No Rash, No Lesions, No Jaundice, No Bruising, No Other Objective Vitals Vital Signs Date Time Temp Pulse Resp B/P (MAP) Pulse Ox O2 Delivery O2 Flow Rate FiO2 10/27/25 12:29 99.4 103 18 119/76 (90) 94 99.4 10/27/25 08:00 Room Air* 0 21 Intake/Output Intake and Output 10/27/25 07:00 Intake Total 0 ml Output Total 1600 ml Balance -1600 ml Intake Oral 0 ml Output Urine Total 1600 ml Exam HEENT pupils are reactive Neck is supple CV is S1-S2 regular rate and rhythm Diminished breath sounds bases GI positive bowel sound, positive MACIE drain. Extremity no edema REGULATORY INTERN no motor deficit Medications Current Medications Medications Dose Ordered Sig/Aretha Route Start Time Stop Time Status Last Admin Dose Admin Acetaminophen/ Hydrocodone Bitart 1 tab Q4HP PRN PO 10/25/25 09:00 10/27/25 14:25 1 TAB Ondansetron HCl 4 mg Q4HP PRN IV 10/25/25 09:00 Docusate Sodium 100 mg BIDPRN PRN PO 10/25/25 09:00 Acetaminophen 650 mg Q6HP PRN PO 10/25/25 09:00 Morphine Sulfate 2 mg Q4HPRN PRN IV 10/25/25 09:00 10/27/25 03:09 2 MG Pantoprazole Sodium 40 mg DAILY IV 10/25/25 10:00 10/27/25 09:47 40 MG Metoprolol Tartrate 50 mg DAILY PO 10/25/25 10:00 Hold Valsartan 160 mg DAILY PO 10/25/25 10:00 10/27/25 09:47 160 MG Piperacillin Sod/ Tazobactam Sod 100 ml @ 25 mls/hr Q8H IV 10/25/25 18:00 10/27/25 09:48 25 MLS/HR Melatonin 10 mg HS PO 10/27/25 22:00 Sodium Chloride 1,000 ml @ 50 mls/hr Q20H IV 10/27/25 15:15 Laboratory Results Laboratory Tests 10/27/25 05:36 Chemistry Test 10/27/25 05:36 Calcium Level 8.7 mg/dL (8.7-10.4) Urinalysis Test 10/25/25 20:30 Urine Color Colorless (Yellow) Urine Clarity Clear (Clear) Urine pH 6.0 (5.0-9.0) Urine Specific [place] 1.006 (1.001-1.035) Urine Protein Negative (Negative) Urine Ketones Negative (Negative) Urine Blood Trace /uL (Negative) H Urine Nitrite Negative (Negative) Urine Bilirubin Negative (Negative) Urine Urobilinogen Normal mg/dL (Negative) Urine Leukocyte Esterase Negative /uL (Negative) Urine RBC 1 /hpf (0 - 3) Urine Microscopic WBC 6 /HPF (0-3) H Urine Squamous Epithelial Cells Few /hpf (<5) Urine Bacteria Few /hpf (None Seen) H Urine Glucose Normal mg/dL (Normal) Assessment/Plan Assessment/Plan 45-year-old male with a known history of hypertension, GERD, presented to the hospital with the abdominal pain found to have 1. Acute appendicitis status post laparoscopic appendectomy, positive MACIE drain 2. Leukocytosis likely reactive 3. GERD 4. Hypertension 5. Age Indeterminate T11, T12 and L1 compression deformities -we will start liquid diet if it is okay with General surgery. IV fluids, pain meds as needed, empirical IV antibiotics, follow up General surgery recommendations. Plan discussed with: Patient My Orders Orders - TONI ROWLAND MD Procedure Category Date Status Time Melatonin (Melatonin) PHA 10/27/25 In Process 22:00 Date of Service: Oct 27, 2025 Billing Provider: TONI ROWLAND MD Common Visit Codes: [id number] INP/OBS CARE(HIGH) TONI ROWLAND MD Oct 27, 2025 15:43
--- NOTE | 2025-10-27 16:37 | MEDREC ---
[facility] Intervention Section I [facility] Intervention: Review courses of therapy (Surgery done on 10/25. If there's adequate source control, please consider d/c antibiotic 48h after surgery when clinically appropriate) SUMAYA CONNELL [facility] RESIDENT Oct 27, 2025 16:37
[2025-10-27] MEDS: MELATONIN 5 MG TAB PO SCH (21:45)
[2025-10-28 01:12] VITALS: BP 131/89; PULSE 98; RESP 17; TEMP 98.4; O2SAT 94
[2025-10-28 04:39] VITALS: BP 135/89; PULSE 96; RESP 17; TEMP 98.6; O2SAT 95
[2025-10-28 06:16] LABS: Hematocrit 41.0 % (41.0-53.0); Hemoglobin 14.2 g/dL (13.5-17.5); Mean Corpuscular Hemoglobin 31.0 pg (28.0-32.0); Mean Corpuscular Volume 89.7 fL (80.0-100.0); Nucleated Red Blood Cells % 0.0 %
[2025-10-28 06:30] LABS: Chloride 100 mmol/L (98-107); Potassium 3.9 mmol/L (3.5-5.1)
[2025-10-28 06:31] LABS: Anion Gap 9 (5-15); Calcium 8.8 mg/dL (8.7-10.4); Carbon Dioxide 26 mmol/L (20-31)
[2025-10-28 06:36] LABS: BUN/Creatinine Ratio 9.9 (10.0-20.0); Blood Urea Nitrogen 10 mg/dL (9-23); Glucose 91 mg/dL (74-106)
[2025-10-28 06:45] LABS: Sodium 135 mmol/L (136-145)
[2025-10-28 09:00] VITALS: BP 146/101; PULSE 93; RESP 21; TEMP 99.4; O2SAT 95
--- NOTE | 2025-10-28 09:19 | DVHPN2 ---
Progress Note - Dictate Date Seen: Oct 28, 2025 Medical Necessity Reason Pt with a Central, PICC or Fol: No Subjective E: no major events o/n. c/o incisional pain. no flatus. vital signs Vital Sign Date Time Temp Pulse Resp B/P (MAP) Pulse Ox O2 Delivery O2 Flow Rate FiO2 10/28/25 07:49 Room Air* 0 21 10/28/25 04:39 98.6 96 17 135/89 (104) 95 98.6 Total Intake and Output 10/27/25 10/27/25 10/28/25 15:00 23:00 07:00 Intake Total 100 ml 500 ml Output Total 600 ml 800 ml Balance 100 ml -600 ml -300 ml medications Current Medications Medications Dose Ordered Sig/Aretha Route Start Time Stop Time Status Last Admin Dose Admin Acetaminophen/ Hydrocodone Bitart 1 tab Q4HP PRN PO 10/25/25 09:00 10/28/25 03:48 1 TAB Ondansetron HCl 4 mg Q4HP PRN IV 10/25/25 09:00 Docusate Sodium 100 mg BIDPRN PRN PO 10/25/25 09:00 Acetaminophen 650 mg Q6HP PRN PO 10/25/25 09:00 Morphine Sulfate 2 mg Q4HPRN PRN IV 10/25/25 09:00 10/27/25 03:09 2 MG Pantoprazole Sodium 40 mg DAILY IV 10/25/25 10:00 10/27/25 09:47 40 MG Metoprolol Tartrate 50 mg DAILY PO 10/25/25 10:00 Hold Valsartan 160 mg DAILY PO 10/25/25 10:00 10/27/25 09:47 160 MG Piperacillin Sod/ Tazobactam Sod 100 ml @ 25 mls/hr Q8H IV 10/25/25 18:00 10/28/25 02:02 25 MLS/HR Melatonin 10 mg HS PO 10/27/25 22:00 10/27/25 21:45 10 MG Sodium Chloride 1,000 ml @ 50 mls/hr Q20H IV 10/27/25 15:15 10/27/25 15:15 50 MLS/HR objective GEN: NAD ABD: surgical incisions clean and dry. drain with 25 mL slt turbid drainage laboratory and microbiology Laboratory Tests 10/28/25 05:50 Test 10/28/25 05:50 Range/Units Serum Glucose 91 74-106 mg/dL Assessment/Plan A: 1. s/p lap appendectomy for perforated appendicitis POD #3 with postop ileus P: 1. ambulate 2. dc home after flatus or BM 3. ok to shower and get incisions wet 4. if discharged, f/u next week. call [phone] for f/u appt. 5. recommend 3-5 more days of abx if discharged. Plan discussed with: Patient SHAWNEE ROPER MD Oct 28, 2025 09:19
[2025-10-28] MEDS ORDERED: AMOX500T86 PO (13:45)
[2025-10-28] MEDS ORDERED: PANT40TA2 PO (13:45)
[2025-10-28] MEDS ORDERED: HYDR-4902 PO (13:45)
--- NOTE | 2025-10-28 13:50 | DVHDS2 ---
Discharge Summary Date of Admission Oct 25, 2025 at 08:53 Date of Discharge: Oct 28, 2025 Admitting Diagnosis Acute appendicitis Labs/Diagnostic Data: Laboratory Results Test 10/28/25 05:50 10/26/25 05:45 10/25/25 20:30 10/25/25 06:48 White Blood Count 7.4 10^3/uL (4.4-10.8) Red Blood Count 4.57 10^6/uL (4.5-5.90) Hemoglobin 14.2 g/dL (13.5-17.5) Hematocrit 41.0 % (41.0-53.0) Mean Corpuscular Volume 89.7 fL (80.0-100.0) Mean Corpuscular Hemoglobin 31.0 pg (28.0-32.0) Mean Corpuscular Hemoglobin Concent 34.5 g/dL (32.0-36.0) Red Cell Distribution Width 13.1 % (11.8-14.3) Platelet Count 207 10^3/uL (140-450) Mean Platelet Volume 8.6 fL (6.9-10.8) Neutrophils (%) (Auto) 81.1 % (37.0-80.0) Lymphocytes (%) (Auto) 8.6 % (10.0-50.0) Monocytes (%) (Auto) 7.5 % (0.0-12.0) Eosinophils (%) (Auto) 2.4 % (0.0-7.0) Basophils (%) (Auto) 0.4 % (0.0-2.0) Neutrophils # (Auto) 6.0 10 ^3/uL (1.6-8.6) Lymphocytes # (Auto) 0.6 10 ^3/uL (0.4-5.4) Monocytes # (Auto) 0.5 10 ^3/uL (0-1.3) Eosinophils # (Auto) 0.2 10 ^3/uL (0-0.8) Basophils # (Auto) 0 10 ^3/uL (0-0.2) Nucleated Red Blood Cells 0.0 % Sodium Level 135 mmol/L (136-145) Potassium Level 3.9 mmol/L (3.5-5.1) Chloride Level 100 mmol/L (98-107) Carbon Dioxide Level 26 mmol/L (20-31) Anion Gap 9 (5-15) Blood Urea Nitrogen 10 mg/dL (9-23) Creatinine 1.01 mg/dL (0.700-1.30) Glomerular Filtration Rate Calc 95 mL/min (>90) BUN/Creatinine Ratio 9.9 (10.0-20.0) Serum Glucose 91 mg/dL (74-106) Calcium Level 8.8 mg/dL (8.7-10.4) Total Bilirubin 1.3 mg/dL (0.2-1.0) Aspartate Amino Transferase (AST) 15 U/L (13-40) Alanine Aminotransferase (ALT) 23 U/L (7-40) Alkaline Phosphatase 43 U/L (46-116) Total Protein 6.1 g/dL (5.7-8.2) Albumin 3.7 g/dL (3.2-4.8) Urine Color Colorless (Yellow) Urine Clarity Clear (Clear) Urine pH 6.0 (5.0-9.0) Urine Specific Pavilion 1.006 (1.001-1.035) Urine Protein Negative (Negative) Urine Ketones Negative (Negative) Urine Blood Trace /uL (Negative) Urine Nitrite Negative (Negative) Urine Bilirubin Negative (Negative) Urine Urobilinogen Normal mg/dL (Negative) Urine Leukocyte Esterase Negative /uL (Negative) Urine RBC 1 /hpf (0 - 3) Urine Microscopic WBC 6 /HPF (0-3) Urine Squamous Epithelial Cells Few /hpf (<5) Urine Bacteria Few /hpf (None Seen) Urine Glucose Normal mg/dL (Normal) Prothrombin Time 11.4 sec (9.3-11.8) Prothrombin Time INR 1.08 (0.9-1.15) Activated Partial Thromboplast Time 25.9 SEC (24.5-34.5) Other Laboratory Tests 10/28/25 05:50 Brief Hx & Hospital Course: History of Present Illness Marcellus Kam is a 45-year-old male with past medical history of GERD and hypertension, who came to the hospital for abdominal pain. Patient states the pain began yesterday about [id number] in his RLQ that he describes as sharp with associated nausea and vomiting. He states he was also having severe acid reflux and he has not been able to eat or drink much the last 24 hours. He tried multiple home remedies, but his pain continued to worsen prompting him to come to the hospital. Course of hospitalization: Patient was seen by General surgery, undergoing laparoscopic appendectomy. Patient was found to [place] [id number]. Patient was started on empiric antibiotic therapy, with leukocytosis resolving. Patient has been cleared by surgery. He is instructed not to lift anything greater than 5 lb until being seen by the surgeon as an outpatient. He will be continued on antibiotic therapy with Augmentin 500 mg p.o. b.i.d. for additional seven days. He will continue all previous home medications for hypertension and be prescribed Protonix 40 mg p.o. daily for the next 30 days. Patient was agreeable with discharge plan. All questions answered. Physical examination General: Alert and Oriented x3. No acute distress. Well-nourished. Eyes: EOMI. Anicteric. HENT: Moist mucous membranes. Lungs: Clear to auscultation bilaterally. No accessory muscle use. Cardiovascular: Regular rate and rhythm. No murmur. No JVD. Abdomen: Soft, non-tender and non-distended. No palpable masses. Extremities: No edema. Non-tender. Skin: No rashes or lesions. Warm. Neurologic: No focal neurological deficits. CN II-XII grossly intact, but not individually tested. Psychiatric: Cooperative. Appropriate mood and affect. Total time spent with patient discussing and formulating plan of care: 35 minutes. This medical document was created using an electronic medical record system with [employer] dictation system. Although this document has been carefully reviewed, there may still be some phonetic and typographical errors. These areas are purely typographical due to imperfections of the software programs, and do not reflect any compromise in the patient's medical care. Consults/Reason for consult Patient surgery: Acute appendicitis Operations or Procedures Laparoscopic appendectomy Condition at Discharge: Guarded Final Diagnosis/Problems List 1. Perforated appendicitis Sepsis Primary hypertension GERD Discharge Disposition: Home Discharge Instruct/Medications Diet: Cardiac 2g Na,low cholest Follow Up/Referral: Follow up with Dr. Negro in one week Medications: Augmentin 500 mg p.o. b.i.d. x7 days Center Line 5/325 q.8 hours as needed for [id number] pain Scheduled Amoxicillin & Pot Clavulanate (Augmentin), 1 TAB PO BID Metoprolol Succinate (Toprol Xl), 1 TAB PO DAILY, (Reported) Metoprolol Tartrate (Lopressor Tablet), 1 TAB PO DAILY, (Reported) Omeprazole (Gnp Omeprazole), 1 TAB PO DAILY, (Reported) Pantoprazole Sodium Sesquihydr (Pantoprazole Sodium), 1 TAB PO DAILY, (Reported) Pantoprazole Sodium Sesquihydr (Protonix), 40 MG PO DAILY Valsartan (Valsartan), 1 TAB PO DAILY, (Reported) Valsartan (Diovan), 2 TAB PO DAILY, (Reported) Scheduled PRN Albuterol Sulfate (Albuterol Sulfate), 2 MG PO Q6HP PRN for SHORTNESS OF BREATH, (Reported) Hydrocodone-Acetaminophen (Hydrocodone Bitartrate/AC 5-325 mg), 1 TAB PO Q8HP PRN 36 Discharge Statement: "Patient was advised to return to the ER or call 911 if any headaches, dizziness, shortness of breath, chest pain, abdominal pain, bleeding, fevers, or worsening of medical condition. Patient was counseled about treatment plan, medications, possible side effects, patientverbalized understanding. All questions were answered to the best of my ability. This discharge took greater then 30 minutes in planning, reviewing documentation, counseling the patient, and discussing with other team members." ASSESSMENT ASSESSMENT Assessment 1. Perforated appendicitis Date of Service: Oct 28, 2025 Billing Provider: AMA LAGUERRE NP Common Visit Codes: 23010-ESR/OBS DISCH DAY >30min AMA LAGUERRE NP Oct 28, 2025 13:50
== END 2025-10-28 15:48 | disposition home or self-care (01) | DRG 853 ==
LOC: ER 05:31 → OVERFLOW 08:53 → EAST 10:03
PROVIDERS: ADMIT Nurse Practitioner Acute Care; ATTEND Nurse Practitioner Acute Care
PROC: 0DTJ4ZZ Resection of Appendix, Percutaneous Endoscopic Approach (ICD-10-PCS; principal; 2025-10-25 15:13)
DX: A41.9 Sepsis, unspecified organism (principal); K35.32 Acute appendicitis with perforation, localized peritonitis, and gangrene, without abscess; G95.29 Other cord compression; I10 Essential (primary) hypertension; J45.909 Unspecified asthma, uncomplicated; K21.9 Gastro-esophageal reflux disease without esophagitis; F17.210 Nicotine dependence, cigarettes, uncomplicated; Z90.49 Acquired absence of other specified parts of digestive tract
CPT/HCPCS: 36415; 71045; 74176; 80048; 80053; 81001; 85025; 85610; 85730; 86850; 86900; 86901; 99291; 99292; G0378; J0131; J0330; J2405; J2470; J2543; J2704; J3490